=== PATIENT | female | born 1985 | race Caucasian/White ===

== ENCOUNTER 2017-03-10 22:30 | Emergency (ER) | payer SELFPAY ==
[~2017-03-10] VITALS: Ht 162.6 cm; Wt 77.0 kg
[2017-03-10 22:36] VITALS: Ht 162.6 cm; Wt 77.0 kg
[2017-03-11] MEDS ORDERED: ONDANSETRON (ODT) 4 MG TAB ODT STA (00:09)
[2017-03-11] MEDS ORDERED: ONDANSETRON (ODT) 4 MG TAB ODT ONE (00:24)
--- NOTE | 2017-03-11 00:56 | ERD ---
ER Documentation Chief Complaint Date/Time DATE: 03/11/17 TIME: 00:54 Chief Complaint altered mental status after taking ambien 1 tab 10 mg 40 minutes ago HPI 31-year-old female who felt nauseous and loopy after she had to ambiens instead of her normal one. This was unintentional. Denies any fevers or chills. Denies any nausea vomiting. Denies any focal neurological complaints ROS All systems reviewed and are negative except as per history of present illness. Allergies Allergies: Coded Allergies: No Known Allergy (Unverified , 03/10/17) PMhx/Soc History of Surgery: Yes ( X 1, LOW BACK LIPO) Anesthesia Reaction: No Hx Neurological Disorder: No Hx Respiratory Disorders: No Hx Cardiac Disorders: No Hx Psychiatric Problems: No Hx Miscellaneous Medical Probl: No Hx Alcohol Use: No Hx Substance Use: No Hx Tobacco Use: No Smoking Status: Never smoker Physical Exam Vitals Vital Signs Date Time Temp Pulse Resp B/P Pulse Ox O2 Delivery O2 Flow Rate FiO2 03/10/17 23:55 98.0 77 20 126/76 99 Room Air 03/10/17 22:36 97.8 70 20 119/69 99 Physical Exam Const: [] Head: Atraumatic Eyes: Normal Conjunctiva ENT: Normal External Ears, Nose and Mouth. Neck: Full range of motion..~ No meningismus. Resp: Clear to auscultation bilaterally Cardio: Regular rate and rhythm, no murmurs Abd: Soft, non tender, non distended. Normal bowel sounds Skin: No petechiae or rashes Back: No midline or flank tenderness Ext: No cyanosis, or edema Neur: Awake and alert Psych: Normal Mood and Affect Results 24 hrs Current Medications Medications (Trade) Dose Ordered Sig/Ramon Route PRN Reason Start Time Stop Time Status Last Admin Dose Admin Ondansetron HCl (Zofran Odt) 4 mg ONCE STAT ODT 03/11/17 00:09 03/11/17 00:10 DC 03/11/17 00:18 Ondansetron HCl (Zofran Odt) 4 mg STK-MED ONCE ODT 03/11/17 00:24 03/11/17 00:25 DC Procedures/MDM Medical decision-makin female here with a mild unintentional ingestion. At this point clinically stable. Discharged home. Told return for worsening of symptoms Departure Diagnosis: Primary Impression: Accidental overdose Encounter type: initial encounter Qualified Code: T50.901A - Accidental overdose, initial encounter Condition: Stable DAMION COREA Mar 11, 2017 00:55
[2017-03-11 01:39] VITALS: BP 118/77; PULSE 66; RESP 20; TEMP 98
== END 2017-03-11 01:40 | disposition home or self-care (01) ==
LOC: E/R 22:30
DX: T42.6X1A Poisoning by other antiepileptic and sedative-hypnotic drugs, accidental (unintentional), initial encounter (principal); R11.0 Nausea; R40.2132 Coma scale, eyes open, to sound, at arrival to emergency department; R40.2242 Coma scale, best verbal response, confused conversation, at arrival to emergency department; R40.2352 Coma scale, best motor response, localizes pain, at arrival to emergency department
CPT/HCPCS: 99283